=== PATIENT | male | born 1975 | race Caucasian/White ===

== ENCOUNTER 2020-11-03 11:21 | Observation (INO) ==
[2020-11-03 13:02] VITALS: BP 127/86; PULSE 82; TEMP 97.9; O2SAT 96
[2020-11-03] MEDS ORDERED: Naloxone 0.4 MG/ML INJ IVP PRN (13:48)
[2020-11-03] MEDS ORDERED: Melatonin 3 MG TABLET PO PRN (13:48)
[2020-11-03] MEDS ORDERED: MOM Conc 10 ML UD.LIQ PO PRN (13:48)
[2020-11-03] MEDS ORDERED: Mag Hydrox/Al Hydrox/Simeth 30 ML UDC PO PRN (13:48)
[2020-11-03] MEDS ORDERED: Ondansetron ODT 4 MG TAB.RAPDIS SL PRN (13:48)
== END 2020-11-03 14:02 | disposition left against medical advice (07) ==
LOC: 3BNU
PROVIDERS: ADMIT Internal Medicine; ATTEND Internal Medicine